=== PATIENT | female | born 1980 ===

== ENCOUNTER 2017-01-13 18:01 | Observation (INO) | payer SELFPAY ==
--- NOTE | 2017-01-13 18:54 | ED PDOC ---
HPI: General Adult Time Seen by Provider: 01/13/17 18:52 Chief Complaint (Nursing): Headache Chief Complaint (Provider): CHEST PAIN/NUMBNESS TO FACE History Per: Patient (36 Y/O FEMAL ESRD DIALYSIS MWF HERE WITH COMPLAINT OF LEFT SIDED FACIAL "WARMTH" ASSOCIATED WITH NUMBNESS GRADUAL ONSET AT 10AM. DENIES ANY UPPER OR LOWER EXTREMITY WEAKNESS. HAS MILD CHEST PRESSURE NOTED INTERMITTENTLY 20 MIN DURATION TODAY. DENIES ANY COUGH/URI/SOB.) Past Medical History Reviewed: Historical Data, Nursing Documentation, Vital Signs Vital Signs: Last Vital Signs Temp 97.8 F 01/13/17 18:12 Pulse 75 01/13/17 18:12 Resp 16 01/13/17 18:12 BP 130/78 01/13/17 18:12 Pulse Ox 98 01/13/17 19:54 - Medical History PMH: HTN, Chronic Kidney Disease - Family History Family History: States: Unknown Family Hx - Immunization History Hx Tetanus Toxoid Vaccination: No Hx Influenza Vaccination: Yes (2014) Hx Pneumococcal Vaccination: Yes (2014) - Home Medications Home Medications: Ambulatory Orders Medication Instructions Recorded Calcium Acetate 3 tab PO TID 01/08/15 Cinacalcet [Sensipar] 1 tab PO DAILY 01/08/15 Codeine Phosphate/Promethazi 5 ml PO Q6 #80 ml 05/26/15 [Promethazine with Codeine 10 mg/5 ml-6.25 mg/] Guaifenesin/Pseudoephedrne HCl 1 tab PO DAILY PRN #30 ter 05/26/15 [Mucinex D 600 mg-60 mg] Cefdinir [Omnicef] 300 mg PO BID 10 Days 08/28/15 Albuterol HFA [Ventolin HFA 90 2 puff IH Q4H #1 puff 10/25/15 mcg/actuation (8 g)] Azithromycin [Zithromax] 250 mg PO DAILY #6 tablet 10/25/15 Promethazine/Codeine 5 ml PO Q8 #60 ml 10/25/15 [Codeine/Promethazine 10 MG/5 Ml-6.25 MG/5 Ml] Naproxen [Naprosyn] 500 mg PO Q12H #20 tab 06/01/16 - Allergies Allergies/Adverse Reactions: Allergies Allergy/AdvReac Type Severity Reaction Status Date / Time vancomycin Allergy ITCHING Verified 06/01/16 10:25 Review of Systems ROS Statement: Except As Marked, All Systems Reviewed And Found Negative Cardiovascular: Positive for: Chest Pain Neurological: Positive for: Numbness (FACIAL) Physical Exam - Reviewed Nursing Documentation Reviewed: Yes Vital Signs Reviewed: Yes - Physical Exam Appears: Positive for: Well, Non-toxic, No Acute Distress Head Exam: Positive for: ATRAUMATIC, NORMAL INSPECTION, NORMOCEPHALIC Skin: Positive for: Normal Color, Warm, DRY Eye Exam: Positive for: EOMI, Normal appearance, PERRL ENT: Positive for: Normal ENT Inspection Neck: Positive for: Normal, Painless ROM Cardiovascular/Chest: Positive for: Regular Rate, Rhythm Respiratory: Positive for: CNT, Normal Breath Sounds Gastrointestinal/Abdominal: Positive for: Normal Exam, Bowel Sounds, Soft Back: Positive for: Normal Inspection Extremity: Positive for: Normal ROM, Other (SHUNT LEFT ARM) Neurologic/Psych: Positive for: Alert, Oriented - Laboratory Results Result Diagrams: 01/13/17 19:10 - ECG ECG Rhythm: Positive for: Sinus Rhythm (NSR 76BPM; NO ECTOPY NO ACUTE CHANGES ARTIFACT V5) O2 Sat by Pulse Oximetry: 98 - Progress ED Course And Treament: D/W DR. GONGORA CXR: NAD POTASSIUM HEMOLYSED. REDRAWN. Disposition - Clinical Impression Clinical Impression: Chest pain - Patient ED Disposition Is Patient to be Admitted: Transfer of Care - Disposition Disposition: Transfer of Care Disposition Time: 19:54 Condition: FAIR Patient Signed Over To: Elana Claros Handoff Comments: BLOODWORK/HEAD CT/ ADMISSION
[2017-01-13 19:29] LABS: ALB/GLOB RATIO 1.7 (1.0-2.1); ALBUMIN 4.4 g/dL (3.5-5.0); CALCIUM 9.5 mg/dL (8.4-10.2); MAGNESIUM 2.8 MG/DL (1.6-2.3)
[2017-01-13 19:40] LABS: TROPONIN I 0.015 ng/mL (0.00-0.120)
[2017-01-13 20:09] LABS: BASO # 0.1 K/uL (0.0-0.2); BASO % 0.9 % (0.0-2.0); EOS # 0.1 K/uL (0.0-0.7); EOS % 0.9 % (0.0-4.0); HEMOGLOBIN 10.9 g/dL (12.0-16.0); LYMPH # 1.5 K/uL (1.0-4.3); LYMPH % 20.2 % (20.0-40.0); MEAN CELL VOLUME 99.4 fl (81.0-99.0); MEAN CORPUSCULAR HEMOGLOBIN 32.1 pg (27.0-31.0); MEAN CORPUSCULAR HGB CONC 32.3 g/dL (33.0-37.0); MEAN PLATELET VOLUME 9.6 fl (7.2-11.7); MONO # 0.5 K/uL (0.0-0.8); MONO % 6.6 % (0.0-10.0); NEUT # 5.2 K/uL (1.8-7.0); NEUT % 71.4 % (50.0-75.0); RBC 3.4 Mil/uL (3.80-5.20); RED CELL DISTRIBUTION WIDTH 17.2 % (11.5-14.5); WHITE BLOOD COUNT 7.3 K/uL (4.8-10.8)
--- NOTE | 2017-01-13 20:13 | ED PDOC ---
- Laboratory Results Result Diagrams: 01/13/17 19:55 01/13/17 19:55 - ECG O2 Sat by Pulse Oximetry: 98 Pulse Ox Interpretation: Normal Medical Decision Making Medical Decision Making: Case was signed out to senior technical writer from [facility] Hernandes pending CT head. K was elevated and sample was hemolysed. Repeat K normal at 4.8 CT head: no acute finding, read by V rad Creatinine is 9.5, patient has ESRD, had dialysis Sunday, usually goes Sunday, Sunday, Sunday. Patient admitted to [facility]. Disposition - Clinical Impression Clinical Impression: Chest pain - POA Present On Arrival: None - Disposition Disposition: Hospitalized as Observation Patient Disposition Time: 21:36 Condition: FAIR Results - Lab Results Lab Results: 01/13/17 01/13/17 01/13/17 19:55 19:55 19:26 WBC 7.3 RBC 3.40 L Hgb 10.9 L Hct 33.8 L MCV 99.4 H MCH 32.1 H MCHC 32.3 L RDW 17.2 H Plt Count 129 L MPV 9.6 Neut % (Auto) 71.4 Lymph % (Auto) 20.2 [place] % (Auto) 6.6 Eos % (Auto) 0.9 Baso % (Auto) 0.9 Neut # 5.2 Lymph # 1.5 [place] # 0.5 Eos # 0.1 Baso # 0.1 D-Dimer, Quantitative 154 Sodium Potassium 4.8 Chloride Carbon Dioxide Anion Gap BUN Creatinine Est GFR ( Amer) Est GFR (Non-Af Amer) Random Glucose Calcium Phosphorus Magnesium Total Bilirubin AST ALT Alkaline Phosphatase Troponin I Total Protein Albumin Globulin Albumin/Globulin Ratio 01/13/17 19:10 WBC RBC Hgb Hct MCV MCH MCHC RDW Plt Count MPV Neut % (Auto) Lymph % (Auto) [place] % (Auto) Eos % (Auto) Baso % (Auto) Neut # Lymph # [place] # Eos # Baso # D-Dimer, Quantitative Sodium 137 Potassium 5.8 H Chloride 98 Carbon Dioxide 25 Anion Gap 20 BUN 49 H Creatinine 9.5 H* Est GFR ( Amer) 6 Est GFR (Non-Af Amer) 5 Random Glucose 92 Calcium 9.5 Phosphorus 6.2 H Magnesium 2.8 H Total Bilirubin 1.2 AST 47 H D ALT 22 Alkaline Phosphatase 55 Troponin I 0.0150 Total Protein 7.1 Albumin 4.4 Globulin 2.7 Albumin/Globulin Ratio 1.7
--- NOTE | 2017-01-13 21:26 | CT ---
EXAM: CT Head Without Intravenous Contrast CLINICAL HISTORY: 36 years old, female; Signs and symptoms; Weakness, facial; Patient HX: Hemodialys x around 12 yrs. HTN; Additional info: Numbness to left side of face TECHNIQUE: Axial computed tomography images of the head/brain without intravenous contrast. This CT exam was performed using one or more of the following dose reduction techniques: automated exposure control, adjustment of the mA and/or kV according to patient size, and/or use of iterative reconstruction technique. Coronal and sagittal reformatted images were created and reviewed. COMPARISON: No relevant prior studies available. FINDINGS: Brain: No intracranial hemorrhage. No mass. Dilated perivascular spaces vs chronic lacunar infarcts about basal ganglia. No definite edema. Ventricles: No hydrocephalus. Bones/joints: No acute fracture. Soft tissues: Unremarkable. Sinuses: No acute sinusitis. Mastoid air cells: No mastoid effusion. Orbits: Unremarkable as visualized. IMPRESSION: 1. No definite acute intracranial abnormality. Acute infarction may be CT occult within first 24 hours. If a focal deficit persists, consider followup CT or MRI for further evaluation. 2. Incidental/non-acute findings are described above.
--- NOTE | 2017-01-13 22:34 | CP.PCM.HP ---
<Rehan Schwartz - Last Filed: 01/13/17 22:53> History of Present Illness - History of Present Illness History of Present Illness: WANDER INT#[id number] 36 y/o female with a PMHx remarkable for ESRD (HD MWF) and HTN (not controlled with medications) presented to [facility] ED this morning with CC of left sided headache with "hot and numb" sensation and chest pain. Symptoms started this morning around 11am. Pt denies any inciting event and this is her first episode of such symptoms. Chest pain is located on the left, around the 4th intercostal space, it is 4/10, intermittent, pressure like, nonradiating. Pt denies alleviating/exacerbating factors. No change in chest pain with position change/ respiration/exertion. Denies left arm/jaw pain. Denies associated diaphoresis, nausea, vomiting. Denies palpitations/SOB/leg&calf pain. Denies Uremic symptoms , Headache started at the same time, pain resolved on its own, but the sensation of heat/numbness remained. Denies changes in vision, numbness/tingling , difficulty with speech/swallowing, any numbness/weakness in her body. Of record, pt reports she is on hemodialysis every MWF, last appointment was Sunday (01/12) and next appt is Monday 01/[address] Cates in [place]. No other complaints. ROS: remaining 10 systems reviewed, found to be negative PMD: none, reports going to [facility] on and off, last visit 07/[address] Bui Nephro: Dr. Cates, [place] PMHx: ESRD (dx 11 years ago, pt reports complication of HTN, had admission for 2 weeks and was started on HD). HTN (not controlled with medications) ALL: Vancomycin (hives) Meds: as per med rec PsurgHx: left arm fistulization in 2005, 2 c-sections POBhx: LMP: 1 week ago, regular, moderate bleeds Social: lives in [place], unemployed, denies ETOH, Tobacco, drug abuse FamilyHx: aunt had ESRD (unknown cause), denies hx of CAD, Stroke, Cancer, [place] ED COURSE: Vitals on presentation: T: 98.7, BP: 130/78, HR: 75, RR: 16, POX 98% RA LABS: CBC: 7.3>10.9/33.8<129 CMP: K+: 4.8, Cr: 9.5 D-DIMER: wnl COAGS: wnl Troponin I: wnl IMAGING: HEAD CT: no acute changes CXR: no active disease EKG: NSR, No acute ST abnormalities, no Q waves, QTc: 438 (as interpreted by me) Admitted to Telemetry for observation Present on Admission - Present on Admission Any Indicators Present on Admission: No Past Patient History - Infectious Disease Hx of Infectious Diseases: None - Tetanus Immunizations Tetanus Immunization: Unknown - Past Medical History & Family History Past Medical History?: Yes Past Family History: Reviewed and not pertinent - Past Social History Smoking Status: Never Smoked Alcohol: None Drugs: Denies Home Situation {Lives}: With Family Domestic Violence: Negative - CARDIAC Hx Hypertension: Yes - PULMONARY Hx Respiratory Disorders: No - NEUROLOGICAL Hx Neurological Disorder: No - HEENT Hx HEENT Problems: No - RENAL Hx Chronic Kidney Disease: Yes - ENDOCRINE/METABOLIC Hx Endocrine Disorders: No - HEMATOLOGICAL/ONCOLOGICAL Hx Blood Disorders: No - INTEGUMENTARY Hx Dermatological Problems: No - MUSCULOSKELETAL/RHEUMATOLOGICAL Hx Musculoskeletal Disorders: No - GASTROINTESTINAL Hx Gastrointestinal Disorders: No - GENITOURINARY/GYNECOLOGICAL Hx Genitourinary Disorders: No - PSYCHIATRIC Hx Psychophysiologic Disorder: No Hx Substance Use: No - SURGICAL HISTORY Hx Surgeries: Yes Hx Section: Yes (x2) Other/Comment: left arm shunt placement - ANESTHESIA Hx Anesthesia: Yes Hx Anesthesia Reactions: No Meds Allergies/Adverse Reactions: Allergies Allergy/AdvReac Type Severity Reaction Status Date / Time vancomycin Allergy ITCHING Verified 01/13/17 20:26 Physical Exam - Constitutional Appears: Non-toxic, No Acute Distress - Head Exam Head Exam: ATRAUMATIC, NORMOCEPHALIC - Eye Exam Eye Exam: EOMI. absent: Conjunctival injection, Scleral icterus Pupil Exam: PERRL - ENT Exam ENT Exam: Mucous Membranes Moist - Neck Exam Neck exam: Positive for: Full Rom. Negative for: Lymphadenopathy, Tenderness - Respiratory Exam Respiratory Exam: Clear to Auscultation Bilateral, NORMAL BREATHING PATTERN. absent: Rales, Rhonchi, Wheezes, Respiratory Distress - Cardiovascular Exam Cardiovascular Exam: REGULAR RHYTHM, RRR, +S1, +S2, Systolic Murmur. absent: Gallop, JVD, Rubs - Expanded Cardiovascular Exam Expanded Location: Lt Upper Sternal Border Intensity: 2/6 - GI/Abdominal Exam GI & Abdominal Exam: Normal Bowel Sounds. absent: Distended, Firm, Guarding, Pulsatile Mass, Rigid, Soft, Tenderness - Expanded Upper Extremities Exam Left General: absent: normal inspection (functioning fistula located on left upper extremity just above elbow.) - Back Exam Back exam: NORMAL INSPECTION. absent: CVA tenderness (L), CVA tenderness (R) - Neurological Exam Neurological exam: Alert, CN II-XII Intact, Normal Gait, Oriented x3, Reflexes Normal - Psychiatric Exam Psychiatric exam: Normal Affect, Normal Mood - Skin Skin Exam: Dry, Intact, Normal Color, Warm Results - Vital Signs Recent Vital Signs: Last Vital Signs Temp 98.5 F 01/13/17 22:10 Pulse 73 01/13/17 22:10 Resp 18 01/13/17 22:10 BP 127/78 01/13/17 22:10 Pulse Ox 100 01/13/17 22:10 - Labs Result Diagrams: 01/13/17 19:55 01/13/17 19:55 Assessment & Plan (1) Chest pain, rule out acute myocardial infarction Assessment and Plan: EKG unremarkable F/U EKG in AM Troponin I first value wnl, will trend Q8H CMP in am Cardiology consult appreciated Status: Acute Priority: High (2) ESRD (end stage renal disease) on dialysis Assessment and Plan: being followed by Dr. Cates HD: MWF will monitor for signs of uremia/fluid overload Status: Chronic Priority: Low (3) Anemia in ESRD (end-stage renal disease) Assessment and Plan: asymptomatic f/u CBC in AM Status: Chronic Priority: Low (4) Hypertension Assessment and Plan: controlled w/o medications will monitor vitals Status: Chronic Priority: Low <Matilda Marie - Last Filed: 01/14/17 09:03> Results - Vital Signs Recent Vital Signs: Last Vital Signs Temp 98.2 F 01/14/17 08:07 Pulse 69 01/14/17 08:07 Resp 20 01/14/17 08:07 BP 119/82 01/14/17 08:07 Pulse Ox 100 01/14/17 08:07 - Labs Result Diagrams: 01/14/17 06:00 01/13/17 19:55 Labs: Laboratory Results - last 24 hr 01/13/17 01/14/17 01/14/17 22:41 02:50 06:00 WBC 5.8 RBC 3.10 L Hgb 10.3 L Hct 30.5 L MCV 98.2 MCH 33.3 H MCHC 33.9 RDW 16.4 H Plt Count 121 L Troponin I < 0.0120 Triglycerides 183 H Cholesterol 187 LDL Cholesterol Direct 89 HDL Cholesterol 41 Assessment & Plan - Assessment and Plan (Free Text) Assessment: ATTENDING NOTE CHART REVIEWED. CASE DISCUSSED WITH RESIDENT. AGREE WITH PLAN.
[2017-01-13 23:01] LABS: HDL CHOLESTEROL 41 MG/DL (30-70); LDL CHOLESTEROL 89 mg/dL (0-129)
[2017-01-14 08:07] VITALS: RESP 20
--- NOTE | 2017-01-14 08:29 | RAD ---
HISTORY: CHEST PAIN COMPARISON: No prior. FINDINGS: LUNGS: No active pulmonary disease. PLEURA: No significant pleural effusion identified, no pneumothorax apparent. CARDIOVASCULAR: Normal. OSSEOUS STRUCTURES: No significant abnormalities. VISUALIZED UPPER ABDOMEN: Normal. OTHER FINDINGS: None. IMPRESSION: No active disease.
[2017-01-14 08:41] LABS: HEMOGLOBIN 10.3 g/dL (12.0-16.0); MEAN CELL VOLUME 98.2 fl (81.0-99.0); MEAN CORPUSCULAR HEMOGLOBIN 33.3 pg (27.0-31.0); MEAN CORPUSCULAR HGB CONC 33.9 g/dL (33.0-37.0); RBC 3.1 Mil/uL (3.80-5.20); RED CELL DISTRIBUTION WIDTH 16.4 % (11.5-14.5); WHITE BLOOD COUNT 5.8 K/uL (4.8-10.8)
[2017-01-14 09:02] LABS: ALB/GLOB RATIO 1.5 (1.0-2.1); ALT/SGPT 41 U/L (9-52); AST/SGOT 30 U/L (14-36); BLOOD UREA NITROGEN 59 mg/dl (7-17); CALCIUM 9.7 mg/dL (8.4-10.2); GFR AFRICAN-AMERICAN 5; GFR NON-AFRICAN AMERICAN 4
--- NOTE | 2017-01-14 11:01 | CP.PCM.CON ---
History of Present Illness - History of Present Illness History of Present Illness: 36 y/o female with a PMHx remarkable for ESRD and HTN admitted with chest pain presented to [facility] ED with CC of left sided headache with "hot and numb" sensation and dull aching chest pain that lasted minutes. Pt denies any inciting event and this is her first episode of such symptoms. Pt is asymptomatic this morning EKG: normal Troponin: neg x 3 Past Patient History - Infectious Disease Hx of Infectious Diseases: None - Tetanus Immunizations Tetanus Immunization: Unknown - Past Medical History & Family History Past Medical History?: Yes Past Family History: Reviewed and not pertinent - Past Social History Smoking Status: Never Smoked Alcohol: None Drugs: Denies Home Situation {Lives}: With Family Domestic Violence: Negative - CARDIAC Hx Hypertension: Yes - PULMONARY Hx Respiratory Disorders: No - NEUROLOGICAL Hx Neurological Disorder: No - HEENT Hx HEENT Problems: No - RENAL Hx Chronic Kidney Disease: Yes - ENDOCRINE/METABOLIC Hx Endocrine Disorders: No - HEMATOLOGICAL/ONCOLOGICAL Hx Blood Disorders: No - INTEGUMENTARY Hx Dermatological Problems: No - MUSCULOSKELETAL/RHEUMATOLOGICAL Hx Musculoskeletal Disorders: No - GASTROINTESTINAL Hx Gastrointestinal Disorders: No - GENITOURINARY/GYNECOLOGICAL Hx Genitourinary Disorders: No - PSYCHIATRIC Hx Psychophysiologic Disorder: No Hx Substance Use: No - SURGICAL HISTORY Hx Surgeries: Yes Hx Section: Yes (x2) Other/Comment: left arm shunt placement - ANESTHESIA Hx Anesthesia: Yes Hx Anesthesia Reactions: No Meds Allergies/Adverse Reactions: Allergies Allergy/AdvReac Type Severity Reaction Status Date / Time vancomycin Allergy ITCHING Verified 01/13/17 20:26 - Medications Medications: Current Medications Acetaminophen (Tylenol 325mg Tab) 650 mg PO Q6 PRN PRN Reason: Pain, Mild (1-3) Ondansetron HCl (Zofran Inj) 4 mg IVP Q6 PRN PRN Reason: Nausea/Vomiting Physical Exam - Head Exam Head Exam: NORMAL INSPECTION - Eye Exam Eye Exam: Normal appearance Pupil Exam: NORMAL ACCOMODATION - ENT Exam ENT Exam: Normal Exam - Neck Exam Neck exam: Positive for: Normal Inspection - Respiratory Exam Respiratory Exam: NORMAL BREATHING PATTERN - Cardiovascular Exam Cardiovascular Exam: REGULAR RHYTHM Results - Vital Signs Recent Vital Signs: Last Vital Signs Temp 98.2 F 01/14/17 08:07 Pulse 69 01/14/17 08:07 Resp 20 01/14/17 08:07 BP 119/82 07/23/17 08:07 Pulse Ox 100 01/14/17 08:07 - Labs Result Diagrams: 01/14/17 06:00 01/14/17 06:00 Labs: Laboratory Results - last 24 hr 01/13/17 01/14/17 01/14/17 22:41 02:50 06:00 WBC RBC Hgb Hct MCV MCH MCHC RDW Plt Count Sodium 139 Potassium 5.1 H Chloride 98 Carbon Dioxide 27 Anion Gap 19 BUN 59 H Creatinine 10.9 H* Est GFR ( Amer) 5 Est GFR (Non-Af Amer) 4 Random Glucose 77 Calcium 9.7 Total Bilirubin 0.6 AST 30 ALT 41 Alkaline Phosphatase 53 Troponin I < 0.0120 < 0.0120 Total Protein 6.6 Albumin 4.0 Globulin 2.6 Albumin/Globulin Ratio 1.5 Triglycerides 183 H Cholesterol 187 LDL Cholesterol Direct 89 HDL Cholesterol 41 01/14/17 06:00 WBC 5.8 RBC 3.10 L Hgb 10.3 L Hct 30.5 L MCV 98.2 MCH 33.3 H MCHC 33.9 RDW 16.4 H Plt Count 121 L Sodium Potassium Chloride Carbon Dioxide Anion Gap BUN Creatinine Est GFR ( Amer) Est GFR (Non-Af Amer) Random Glucose Calcium Total Bilirubin AST ALT Alkaline Phosphatase Troponin I Total Protein Albumin Globulin Albumin/Globulin Ratio Triglycerides Cholesterol LDL Cholesterol Direct HDL Cholesterol Assessment & Plan (1) Chest pain Assessment and Plan: non cardiac chest pain Status: Acute
--- NOTE | 2017-01-14 11:29 | CARD ---
APPROVED REPORT EKG Measurement Heart [id number] <Conclusion> Normal sinus rhythm Normal ECG
--- NOTE | 2017-01-14 11:48 | CP.PCM.DIS ---
<Margaret Perales - Last Filed: 01/14/17 12:30> Provider - Provider Date of Admission: 01/13/17 21:36 Attending physician: Matilda Marie MD Primary care physician: [facility] Time Spent in preparation of Discharge (in minutes): 30 Diagnosis - Discharge Diagnosis (1) Chest pain, rule out acute myocardial infarction Status: Acute Priority: Low Comment: ACS ruled out (2) ESRD (end stage renal disease) on dialysis Status: Chronic Priority: Low Hospital Course - Lab Results Lab Results: Most Recent Lab Values WBC 5.8 K/uL (4.8-10.8) 01/14/17 06:00 RBC 3.10 Mil/uL (3.80-5.20) L 01/14/17 06:00 Hgb 10.3 g/dL (12.0-16.0) L 01/14/17 06:00 Hct 30.5 % (34.0-47.0) L 01/14/17 06:00 MCV 98.2 fl (81.0-99.0) 01/14/17 06:00 MCH 33.3 pg (27.0-31.0) H 01/14/17 06:00 MCHC 33.9 g/dL (33.0-37.0) 01/14/17 06:00 RDW 16.4 % (11.5-14.5) H 01/14/17 06:00 Plt Count 121 K/uL (130-400) L 01/14/17 06:00 MPV 9.6 fl (7.2-11.7) 01/13/17 19:55 Neut % (Auto) 71.4 % (50.0-75.0) 01/13/17 19:55 Lymph % (Auto) 20.2 % (20.0-40.0) 01/13/17 19:55 Cataño % (Auto) 6.6 % (0.0-10.0) 01/13/17 19:55 Eos % (Auto) 0.9 % (0.0-4.0) 01/13/17 19:55 Baso % (Auto) 0.9 % (0.0-2.0) 01/13/17 19:55 Neut # 5.2 K/uL (1.8-7.0) 01/13/17 19:55 Lymph # 1.5 K/uL (1.0-4.3) 01/13/17 19:55 Cataño # 0.5 K/uL (0.0-0.8) 01/13/17 19:55 Eos # 0.1 K/uL (0.0-0.7) 01/13/17 19:55 Baso # 0.1 K/uL (0.0-0.2) 01/13/17 19:55 D-Dimer, Quantitative 154 ng/mlDDU (0-230) 01/13/17 19:26 Sodium 139 mmol/l (132-148) 01/14/17 06:00 Potassium 5.1 MMOL/L (3.6-5.0) H 01/14/17 06:00 Chloride 98 mmol/L (98-107) 01/14/17 06:00 Carbon Dioxide 27 mmol/L (22-30) 01/14/17 06:00 Anion Gap 19 (10-20) 01/14/17 06:00 BUN 59 mg/dl (7-17) H 01/14/17 06:00 Creatinine 10.9 mg/dL (0.7-1.2) H* 01/14/17 06:00 Est GFR ( Amer) 5 01/14/17 06:00 Est GFR (Non-Af Amer) 4 01/14/17 06:00 Random Glucose 77 mg/dL (65-105) 01/14/17 06:00 Calcium 9.7 mg/dL (8.4-10.2) 01/14/17 06:00 Phosphorus 6.2 mg/dl (2.5-4.5) H 01/13/17 19:10 Magnesium 2.8 MG/DL (1.6-2.3) H 01/13/17 19:10 Total Bilirubin 0.6 mg/dl (0.2-1.3) 01/14/17 06:00 AST 30 U/L (14-36) 01/14/17 06:00 ALT 41 U/L (9-52) 01/14/17 06:00 Alkaline Phosphatase 53 U/L (38-126) 01/14/17 06:00 Troponin I < 0.0120 ng/mL (0.00-0.120) 01/14/17 06:00 Total Protein 6.6 G/DL (6.3-8.2) 01/14/17 06:00 Albumin 4.0 g/dL (3.5-5.0) 01/14/17 06:00 Globulin 2.6 gm/dL (2.2-3.9) 01/14/17 06:00 Albumin/Globulin Ratio 1.5 (1.0-2.1) 01/14/17 06:00 Triglycerides 183 mg/DL (0-149) H 01/13/17 22:41 Cholesterol 187 mg/dL (0-199) 01/13/17 22:41 LDL Cholesterol Direct 89 mg/dL (0-129) 01/13/17 22:41 HDL Cholesterol 41 MG/DL (30-70) 01/13/17 22:41 - Hospital Course Hospital Course: 36 yr old F admitted for chest pain, ACS was ruled out. EKG showed NSR, troponins were negative x 3, patients symptoms resolved. She was discharged stable with intstructions to go for hemodialysis as scheduled on 01/15/17, follow up with PMD at [facility] within 1 week, follow up with Dr. Samuel-cardiology, follow up with your mortuary operations manager Dr. Cates within 1-2 weeks, follow up with Jack Warren at [facility], take your home meds as prescribed, ER precautions were reviewed. - Date & Time of H&P Date of H&P: 01/13/17 Time of H&P: 22:32 Discharge Exam - Head Exam Head Exam: ATRAUMATIC, NORMOCEPHALIC - Eye Exam Eye Exam: EOMI, PERRL - ENT Exam ENT Exam: Mucous Membranes Moist - Neck Exam Neck exam: Full Rom - Respiratory Exam Respiratory Exam: Clear to PA & Lateral, NORMAL BREATHING PATTERN - Cardiovascular Exam Cardiovascular Exam: REGULAR RHYTHM, +S1, +S2. absent: Gallop - GI/Abdominal Exam GI & Abdominal Exam: Normal Bowel Sounds, Soft (obese) - Extremities Exam Extremities exam: full ROM (no calf tenderness, no pedal edema) - Back Exam Back exam: absent: CVA tenderness (L), CVA tenderness (R) - Neurological Exam Neurological exam: Alert, CN II-XII Intact - Psychiatric Exam Psychiatric exam: Depressed (no suicidal ideations, no homicidal ideations), Normal Mood - Skin Skin Exam: Dry, Intact Discharge Plan - Follow Up Plan Condition: FAIR Disposition: HOME/ ROUTINE Patient education suggested?: Yes Instructions: Chest Pain (DC), Dialysis Diet (DC), End Stage Kidney Disease (DC ) Additional Instructions: -Follow up with PMD at [facility] within 1 week, call [phone] for appt -Follow up with Dr. Samuel-cardiology -Follow up with your mortuary operations manager Dr. Cates within 1-2 weeks -Follow up with Jack Warren at [facility]. -Take your home meds as prescribed. Referrals: Jacky Samuel MD [Staff Provider] - Margaret Perales MD [Resident] - Melissa Cates MD [Staff Provider] - Jack Warren APN [Staff Provider] - <Matilda Marie - Last Filed: 01/15/17 10:26> Provider - Provider Date of Admission: 01/13/17 21:36 Attending physician: Matilda Marie MD Hospital Course - Lab Results Lab Results: Most Recent Lab Values WBC 5.8 K/uL (4.8-10.8) 01/14/17 06:00 RBC 3.10 Mil/uL (3.80-5.20) L 01/14/17 06:00 Hgb 10.3 g/dL (12.0-16.0) L 01/14/17 06:00 Hct 30.5 % (34.0-47.0) L 01/14/17 06:00 MCV 98.2 fl (81.0-99.0) 01/14/17 06:00 MCH 33.3 pg (27.0-31.0) H 01/14/17 06:00 MCHC 33.9 g/dL (33.0-37.0) 01/14/17 06:00 RDW 16.4 % (11.5-14.5) H 01/14/17 06:00 Plt Count 121 K/uL (130-400) L 01/14/17 06:00 MPV 9.6 fl (7.2-11.7) 01/13/17 19:55 Neut % (Auto) 71.4 % (50.0-75.0) 01/13/17 19:55 Lymph % (Auto) 20.2 % (20.0-40.0) 01/13/17 19:55 Cataño % (Auto) 6.6 % (0.0-10.0) 01/13/17 19:55 Eos % (Auto) 0.9 % (0.0-4.0) 01/13/17 19:55 Baso % (Auto) 0.9 % (0.0-2.0) 01/13/17 19:55 Neut # 5.2 K/uL (1.8-7.0) 01/13/17 19:55 Lymph # 1.5 K/uL (1.0-4.3) 01/13/17 19:55 Cataño # 0.5 K/uL (0.0-0.8) 01/13/17 19:55 Eos # 0.1 K/uL (0.0-0.7) 01/13/17 19:55 Baso # 0.1 K/uL (0.0-0.2) 01/13/17 19:55 D-Dimer, Quantitative 154 ng/mlDDU (0-230) 01/13/17 19:26 Sodium 139 mmol/l (132-148) 01/14/17 06:00 Potassium 5.1 MMOL/L (3.6-5.0) H 01/14/17 06:00 Chloride 98 mmol/L (98-107) 01/14/17 06:00 Carbon Dioxide 27 mmol/L (22-30) 01/14/17 06:00 Anion Gap 19 (10-20) 01/14/17 06:00 BUN 59 mg/dl (7-17) H 01/14/17 06:00 Creatinine 10.9 mg/dL (0.7-1.2) H* 01/14/17 06:00 Est GFR ( Amer) 5 01/14/17 06:00 Est GFR (Non-Af Amer) 4 01/14/17 06:00 Random Glucose 77 mg/dL (65-105) 01/14/17 06:00 Calcium 9.7 mg/dL (8.4-10.2) 01/14/17 06:00 Phosphorus 6.2 mg/dl (2.5-4.5) H 01/13/17 19:10 Magnesium 2.8 MG/DL (1.6-2.3) H 01/13/17 19:10 Total Bilirubin 0.6 mg/dl (0.2-1.3) 01/14/17 06:00 AST 30 U/L (14-36) 01/14/17 06:00 ALT 41 U/L (9-52) 01/14/17 06:00 Alkaline Phosphatase 53 U/L (38-126) 01/14/17 06:00 Troponin I < 0.0120 ng/mL (0.00-0.120) 01/14/17 11:30 Total Protein 6.6 G/DL (6.3-8.2) 01/14/17 06:00 Albumin 4.0 g/dL (3.5-5.0) 01/14/17 06:00 Globulin 2.6 gm/dL (2.2-3.9) 01/14/17 06:00 Albumin/Globulin Ratio 1.5 (1.0-2.1) 01/14/17 06:00 Triglycerides 183 mg/DL (0-149) H 01/13/17 22:41 Cholesterol 187 mg/dL (0-199) 01/13/17 22:41 LDL Cholesterol Direct 89 mg/dL (0-129) 01/13/17 22:41 HDL Cholesterol 41 MG/DL (30-70) 01/13/17 22:41 Discharge Exam - Additional Findings Additional findings: ATTENDING NOTE - ADDENDUM Patient seen and examined. Case discussed with resident. Agree with findings and plan.
[2017-01-14 12:19] VITALS: BP 115/79; PULSE 63; TEMP 98.3; O2SAT 99
== END 2017-01-14 12:23 | disposition home or self-care (01) ==
LOC: H.ER 18:01 → H.ERHOLD 21:36 → H.TEL 22:46
PROVIDERS: ADMIT Emergency Medicine; ATTEND Emergency Medicine
DX: R07.89 Other chest pain (principal); D63.1 Anemia in chronic kidney disease; I12.0 Hypertensive chronic kidney disease with stage 5 chronic kidney disease or end stage renal disease; N18.6 End stage renal disease; Z99.2 Dependence on renal dialysis; R51 Headache

== ENCOUNTER 2017-06-20 06:23 | Emergency (ER) | payer OTHER, SELFPAY ==
[2017-06-20 06:23] VITALS: BMI 33.5
[2017-06-20 06:39] VITALS: RESP 16; TEMP 98.6; O2SAT 98
[2017-06-20] MEDS ORDERED: Sodium Chloride 0.9% 500 ML IV STA (07:25)
--- NOTE | 2017-06-20 07:29 | ED PDOC ---
HPI: Abdomen Time Seen by Provider: 06/20/17 07:08 Chief Complaint (Nursing): Abdominal Pain Chief Complaint (Provider): Epigastric pain History Per: Patient History/Exam Limitations: no limitations Onset/Duration Of Symptoms: Hrs (x9-10) Current Symptoms Are (Timing): Still Present Additional Complaint(s): Karen Milner is a 36 year old female with a past medical history of hypertension and currently on dialysis with last dialysis tx occurring on Sunday and due for next dialysis tx today at 9 AM presenting to the ED for an evaluation of epigastric pain associated with nausea, non-bloody vomiting, and non-bloody diarrhea occurring since 10 PM last night. The patient states the pain occurs intermittently and also reports associated generalized weakness and dizziness. She has had similar symptoms prior to this, which resolved on its own. The patient denies taking any medication for the pain, any changes in eating or drinking, fever, chills, chest pain, leg pain, shortness of breath, numbness, tingling, dysuria, or headache. PMD: None provided Past Medical History Reviewed: Historical Data, Nursing Documentation, Vital Signs Vital Signs: Last Vital Signs Temp 98.6 F 06/20/17 06:36 Pulse 92 H 06/20/17 06:36 Resp 16 06/20/17 06:36 BP 120/84 06/20/17 06:36 Pulse Ox 98 06/20/17 07:35 - Medical History PMH: HTN, End Stage Renal Disease (on dialysis), Chronic Kidney Disease - Surgical History Surgical History: (x2) - Family History Family History: States: No Known Family Hx - Social History Current smoker - smoking cessation education provided: No Ex-Smoker (has not smoked in the last 12 months): No Alcohol: None Drugs: Denies - Immunization History Hx Tetanus Toxoid Vaccination: No Hx Influenza Vaccination: Yes (2014) Hx Pneumococcal Vaccination: Yes (2014) - Home Medications Home Medications: Ambulatory Orders Medication Instructions Recorded Sevelamer Carbonate [Renvela] 800 mg PO DAILY 01/13/17 Nitrofurantoin Macrocrystals 100 mg PO BID #14 cap 04/29/17 [Macrobid] - Allergies Allergies/Adverse Reactions: Allergies Allergy/AdvReac Type Severity Reaction Status Date / Time vancomycin Allergy ITCHING Verified 01/13/17 20:26 Review of Systems ROS Statement: Except As Marked, All Systems Reviewed And Found Negative Constitutional: Negative for: Fever, Chills Cardiovascular: Negative for: Chest Pain Respiratory: Negative for: Shortness of Breath Gastrointestinal: Positive for: Nausea, Vomiting, Abdominal Pain (epigastric pain), Diarrhea. Negative for: Hematochezia, Hematemesis Genitourinary Female: Negative for: Dysuria Musculoskeletal: Negative for: Leg Pain Neurological: Positive for: Weakness (generalized), Dizziness. Negative for: Numbness, Headache, Other (no tingling) Physical Exam - Reviewed Nursing Documentation Reviewed: Yes Vital Signs Reviewed: Yes - Physical Exam Appears: Positive for: Non-toxic, No Acute Distress Head Exam: Positive for: ATRAUMATIC, NORMOCEPHALIC Skin: Positive for: Normal Color, Warm, Dry Eye Exam: Positive for: Normal appearance, EOMI Neck: Positive for: Normal, Painless ROM, Supple Cardiovascular/Chest: Positive for: Regular Rate, Rhythm, Chest Non Tender. Negative for: Edema, Murmur Respiratory: Positive for: Normal Breath Sounds. Negative for: Respiratory Distress Gastrointestinal/Abdominal: Positive for: Soft, Tenderness (to epigastric area; no lower abdominal tenderness). Negative for: Mass, Distended, Guarding, Rebound Back: Positive for: Normal Inspection. Negative for: L CVA Tenderness, R CVA Tenderness, Vertebral Tenderness Extremity: Positive for: Normal ROM. Negative for: Pedal Edema, Deformity Neurologic/Psych: Positive for: Alert, Oriented (x3). Negative for: Motor/ Sensory Deficits - Laboratory Results Result Diagrams: 06/20/17 08:25 06/20/17 08:25 Interpretation Of Abn Labs: 5.6 k - ECG ECG: Positive for: Interpreted By Me, Viewed By Me ECG Rhythm: Positive for: Normal QRS, Normal ST Segment, Sinus Rhythm O2 Sat by Pulse Oximetry: 98 (RA) Pulse Ox Interpretation: Normal - Progress ED Course And Treament: 921: Stable. Tolerated PO. AAOx3. No pain. Has dialysis today. She will go to the dialysis and they will take her today. Medical Decision Making Medical Decision Making: Time: 07:08 Impression: Epigastric tenderness associated with nausea, vomiting, and diarrhea Plan: * ED EKG * CMP * Lipase * Troponin I * CBC (with differential) * Bentyl 10 mg PO * NS 0.9% 500 ml IV 100 mls/hr * Zofran 4 mg IV * Reevaluation Scribe Attestation: Documented by Theodora Frey, acting as a scribe for Pa Tello MD. Provider Scribe Attestation: All medical record entries made by the Scribe were at my direction and personally dictated by me. I have reviewed the chart and agree that the record accurately reflects my personal performance of the history, physical exam, medical decision making, and the department course for this patient. I have also personally directed, reviewed, and agree with the discharge instructions and disposition. Disposition - Clinical Impression Clinical Impression: Hyperkalemia, Abdominal pain, Vomiting, Diarrhea - Patient ED Disposition Is Patient to be Admitted: No Counseled Patient/Family Regarding: Studies Performed, Diagnosis, Need For Followup - Disposition Referrals: [facility] [Outside] - 06/21/17 Disposition: Routine/Home Disposition Time: 09:44 Condition: STABLE Additional Instructions: Return if not better in 3 days. Go straight to dialysis today. Instructions: Hyperkalemia (ED), Acute Nausea and Vomiting (ED), Acute Diarrhea (ED), Acute Abdominal Pain (ED)
[2017-06-20 08:28] LABS: BASO % 0.3 % (0.0-2.0); EOS # 0.1 K/uL (0.0-0.7); LYMPH # 0.3 K/uL (1.0-4.3); LYMPH % 4.5 % (20.0-40.0); MEAN CORPUSCULAR HEMOGLOBIN 30.9 pg (27.0-31.0); MEAN CORPUSCULAR HGB CONC 32.2 g/dL (33.0-37.0); MEAN PLATELET VOLUME 9.3 fl (7.2-11.7); MONO # 0.2 K/uL (0.0-0.8); MONO % 2.9 % (0.0-10.0); NEUT # 5.9 K/uL (1.8-7.0); NEUT % 91.3 % (50.0-75.0); PLATELET COUNT 121 K/uL (130-400); RED CELL DISTRIBUTION WIDTH 16.8 % (11.5-14.5); WHITE BLOOD COUNT 6.5 K/uL (4.8-10.8)
[2017-06-20 09:07] LABS: TROPONIN I 0.013 ng/mL (0.00-0.120)
[2017-06-20 09:12] LABS: ALB/GLOB RATIO 1.5 (1.0-2.1); BILIRUBIN,TOTAL 0.5 mg/dl (0.2-1.3); CALCIUM 9.5 mg/dL (8.4-10.2); POTASSIUM 5.6 MMOL/L (3.6-5.0); TOTAL PROTEIN 7.2 G/DL (6.3-8.2)
[2017-06-20] MEDS ORDERED: Sod Polystyrene Sulf 15 gm/60 ml Susp PO STA (09:19)
[2017-06-20] MEDS ORDERED: Insulin Regular 100 units/ml IV STA (09:19)
[2017-06-20] MEDS ORDERED: Dextrose 50% SYRINGE Inj (50 ml) IVP ONE (09:20)
[2017-06-20] MEDS ORDERED: Sod Polystyrene Sulf 15 gm/60 ml Susp ONE (09:41)
[2017-06-20] MEDS ORDERED: Dextrose 50% SYRINGE Inj (50 ml) ONE (09:42)
[2017-06-20] MEDS ORDERED: Insulin Regular 100 units/ml ONE (09:44)
[2017-06-20 10:14] VITALS: BP 146/77; PULSE 91
[2017-06-20 11:17] LABS: NEUTROPHIL 90 % (42-75); TOTAL CELLS COUNTED 100
--- NOTE | 2017-06-21 09:28 | CARD ---
APPROVED REPORT EKG Measurement Heart [id number] <Conclusion> Normal sinus rhythm Normal ECG
== END 2017-06-20 10:05 | disposition home or self-care (01) ==
LOC: H.ER 06:23
DX: E87.5 Hyperkalemia (principal); R10.9 Unspecified abdominal pain; Z99.2 Dependence on renal dialysis; I12.0 Hypertensive chronic kidney disease with stage 5 chronic kidney disease or end stage renal disease; Z87.891 Personal history of nicotine dependence
CPT/HCPCS: 80053; 81025; 83690; 84484; 85025; 93005; 96361; 96374; 96375; 99283; J2405; J7040

== ENCOUNTER 2017-12-28 17:12 | Observation (INO) | payer OTHER ==
[2017-12-28 17:13] VITALS: BMI 33.5
[2017-12-28] MEDS ORDERED: Sodium Chloride 0.9% 1,000 ML IV STA (19:58)
--- NOTE | 2017-12-28 20:50 | ED PDOC ---
HPI: Back Time Seen by Provider: 12/28/17 19:30 Chief Complaint (Nursing): Back Pain Chief Complaint (Provider): Back Pain History Per: Patient History/Exam Limitations: no limitations Onset/Duration Of Symptoms: Days (x2) Current Symptoms Are (Timing): Still Present Additional Complaint(s): 37 year old female with medical history of renal disease, presents to the emergency department with a complaint of pain to her right flank, lower right abdomen and right leg ongoing since yesterday. She denies any fever, chills, vomiting, diarrhea, vaginal bleed, dysuria or hematuria. Patient reports taking Tylenol and Motrin with no relief. Nephorologist: Dr. Cates Past Medical History Reviewed: Historical Data, Nursing Documentation, Vital Signs Vital Signs: Last Vital Signs Temp 98.6 F 12/28/17 17:57 Pulse 79 12/28/17 17:57 Resp 16 12/28/17 17:57 BP 111/73 12/28/17 17:57 Pulse Ox 97 12/28/17 17:57 - Medical History PMH: HTN, End Stage Renal Disease (on dialysis), Chronic Kidney Disease - Surgical History Surgical History: (x2) - Family History Family History: States: Unknown Family Hx - Immunization History Hx Tetanus Toxoid Vaccination: No Hx Influenza Vaccination: Yes (2014) Hx Pneumococcal Vaccination: Yes (2014) - Home Medications Home Medications: Ambulatory Orders Medication Instructions Recorded Sevelamer Carbonate [Renvela] 800 mg PO TID 01/13/17 Cinacalcet [Sensipar] 30 mg PO DAILY 12/29/17 - Allergies Allergies/Adverse Reactions: Allergies Allergy/AdvReac Type Severity Reaction Status Date / Time vancomycin Allergy ITCHING Verified 12/28/17 17:55 Review of Systems ROS Statement: Except As Marked, All Systems Reviewed And Found Negative Constitutional: Negative for: Fever, Chills Gastrointestinal: Positive for: Abdominal Pain (lower right). Negative for: Vomiting, Diarrhea Genitourinary Female: Negative for: Dysuria, Hematuria, Vaginal Bleeding Musculoskeletal: Positive for: Back Pain (right flank), Leg Pain (right) Physical Exam - Reviewed Nursing Documentation Reviewed: Yes Vital Signs Reviewed: Yes - Physical Exam Appears: Positive for: Non-toxic, No Acute Distress Head Exam: Positive for: ATRAUMATIC, NORMAL INSPECTION, NORMOCEPHALIC Skin: Positive for: Normal Color Eye Exam: Positive for: Normal appearance ENT: Positive for: Normal ENT Inspection Neck: Positive for: Normal Cardiovascular/Chest: Positive for: Regular Rate, Rhythm Respiratory: Positive for: Normal Breath Sounds. Negative for: Respiratory Distress Gastrointestinal/Abdominal: Positive for: Soft, Tenderness (RLQ; right flank) Back: Positive for: Normal Inspection. Negative for: L CVA Tenderness, R CVA Tenderness, Other ((-) straight-leg raise) Extremity: Positive for: Normal ROM (upper/lower/hip). Negative for: Pedal Edema (bilateral) Neurologic/Psych: Positive for: Alert, Oriented. Negative for: Motor/Sensory Deficits - Laboratory Results Result Diagrams: 12/29/17 06:40 12/29/17 06:40 - ECG O2 Sat by Pulse Oximetry: 97 (RA) Pulse Ox Interpretation: Normal Medical Decision Making Medical Decision Making: Initial Impression: Right flank pain; RLQ pain Differential Diagnosis: Renal colic; nephritis; Acute appendicitis; UTI; lumbar radiculopathy Initial Plan: * CT ABD/pelvis with IV contrast * BMP * Urine dipstick * CBC * NS 1,000ml IV per 1,000mls/hr * Toradol 30mg IVP * UA Time: 2115 --Urine: negative for . Scribe Attestation: Documented by Yuko Gibson, acting as a scribe for Elvis Wang MD. Provider Scribe Attestation: All medical record entries made by the Scribe were at my direction and personally dictated by me. I have reviewed the chart and agree that the record accurately reflects my personal performance of the history, physical exam, medical decision making, and the department course for this patient. I have also personally directed, reviewed, and agree with the discharge instructions and disposition. Time: 2256 CT ABD/PELVIS RESULTS FINDINGS: Lower thorax: Minimal atelectasis or parenchymal scarring in the imaged lungs. ABDOMEN: Liver: No acute findings. Gallbladder and bile ducts: The gallbladder is moderately distended, similar to the prior study. No radiopaque gallstones or pericholecystic inflammatory changes. No biliary ductal dilation. Pancreas: No acute findings. Spleen: Redemonstrated splenomegaly, measuring 16 cm in craniocaudal dimension. Adrenals: No acute findings. Kidneys and ureters: Redemonstrated marked bilateral renal atrophy. No urinary tract dilation or radiopaque urinary tract calculi. Redemonstrated small, bilateral renal cysts. Stomach and bowel: Moderate amount of gas and stool present throughout the colon. No colonic wall thickening or pericolonic fat stranding. No evident acute abnormality of the stomach or small bowel. Appendix: The appendix is borderline dilated, measuring up to 7 mm in diameter, but is stable in caliber compared to the prior study and otherwise normal in appearance with no adjacent inflammatory changes. PELVIS: Bladder: The bladder is only minimally distended. No evident acute abnormality. Reproductive: No evident abnormality of the gynecologic structures. ABDOMEN and PELVIS: Intraperitoneal space: No free intraperitoneal fluid or air. Bones/joints: No evident acute fracture or suspicious osseous lesion. Soft tissues: No acute findings. Vasculature: No acute findings. The abdominal aorta is normal in caliber. Lymph nodes: No enlarged abdominal or pelvic lymph nodes by CT criteria. IMPRESSION: 1. The appendix is borderline dilated but is stable in caliber compared to the prior study and otherwise normal in appearance with no adjacent inflammatory changes. This likely represents the patient's baseline but early acute appendicitis cannot be entirely excluded. 2. Moderate amount of gas and stool present throughout the colon. 3. The gallbladder is moderately distended but there are no radiopaque gallstones or pericholecystic inflammatory changes to suggest acute cholecystitis. 4. Redemonstrated splenomegaly. 5. Additional redemonstrated and non-acute findings as described above. Thank you for allowing us to participate in the care of your patient. Dictated and Authenticated by: Irasema Zimmerman MD 12/28/2017 10:57 PM Eastern Time ([place] & [place]) 1230 Discussed the case with operating room surgical technician for Dr Orozco. Recommend observation for serial abdominal exams. Scribe Attestation: Documented by Eliza Rowley acting as a scribe for Dr. Elvis Wang MD. Provider Scribe Attestation: All medical record entries made by the Scribe were at my direction and personally dictated by me. I have reviewed the chart and agree that the record accurately reflects my personal performance of the history, physical exam, medical decision making, and the department course for this patient. I have also personally directed, reviewed, and agree with the discharge instructions and disposition. Disposition - Clinical Impression Clinical Impression: Abdominal pain - Patient ED Disposition Is Patient to be Admitted: Yes Discussed With : Kamran Pena Counseled Patient/Family Regarding: Studies Performed, Diagnosis - Disposition Disposition Time: 01:00 Condition: FAIR - Pt Status Changed To: Hospital Disposition Of: Observation - POA Present On Arrival: None
[2017-12-28 21:00] LABS: BASO % 0.5 % (0.0-2.0); EOS # 0.1 K/uL (0.0-0.7); HEMOGLOBIN 12.7 g/dL (12.0-16.0); LYMPH # 1.2 K/uL (1.0-4.3); LYMPH % 19.2 % (20.0-40.0); MEAN CELL VOLUME 97.4 fl (81.0-99.0); MEAN CORPUSCULAR HEMOGLOBIN 32.8 pg (27.0-31.0); MEAN CORPUSCULAR HGB CONC 33.6 g/dL (33.0-37.0); MEAN PLATELET VOLUME 8.5 fl (7.2-11.7); MONO # 0.4 K/uL (0.0-0.8); MONO % 6.7 % (0.0-10.0); NEUT # 4.4 K/uL (1.8-7.0); NEUT % 72.6 % (50.0-75.0); RBC 3.88 Mil/uL (3.80-5.20); RED CELL DISTRIBUTION WIDTH 19.5 % (11.5-14.5); WHITE BLOOD COUNT 6.1 K/uL (4.8-10.8)
[2017-12-28 21:10] LABS: CALCIUM 9.3 mg/dL (8.4-10.2)
[2017-12-29] MEDS ORDERED: Piperacillin/Tazobact 3.375 GM in Sodium Chloride 0.9% 100 ML IVPB STA (00:14)
[2017-12-29 01:30] LABS: SQUAMOUS EPITHIAL 9 /hpf (0-5); URINE AMORPHOUS SEDIMENT RARE /ul (<OCC); URINE BACTERIA RARE (<OCC); URINE BILIRUBIN NEGATIVE (NEGATIVE); URINE BLOOD LARGE (NEGATIVE); URINE CLARITY CLOUDY (Clear); URINE COLOR YELLOW (YELLOW); URINE GLUCOSE (UA) 150 mg/dL (Normal); URINE LEUKOCYTE ESTERASE TRACE Leu/uL (Negative); URINE PROTEIN >=500 mg/dL (NEGATIVE); URINE UROBILINOGEN 0.2-1.0 mg/dL (0.2-1.0)
[2017-12-29] MEDS ORDERED: Piperacillin/Tazobact 3.375 gm Inj IVPB ONE (02:05)
--- NOTE | 2017-12-29 02:49 | CP.PCM.HP ---
History of Present Illness - History of Present Illness History of Present Illness: CC: abd pain HPI: This is a 37 y/o female with HTN and ESRD on M/W/F HD who comes in with RLQ abd pain. She states pain started yesterday and has been persistent. She denies f/c/n/v/d. Has tried Tylenol and Motrin with no relief. Has never had pain like this before. ROS: 14 systems reviewed, negative other than HPI MHx: ESRD on HD, HTN SHx: LUE fistula, C section Allergies: Vancomycin Medications: Pending Family Hx: Reviewed, no relevant findings Social Hx: Lives with family, no tobacco, no EtOH Present on Admission - Present on Admission Any Indicators Present on Admission: No Past Patient History - Infectious Disease Hx of Infectious Diseases: None - Tetanus Immunizations Tetanus Immunization: Unknown - Past Medical History & Family History Past Medical History?: Yes - Past Social History Smoking Status: Never Smoked - CARDIAC Hx Hypertension: Yes - PULMONARY Hx Respiratory Disorders: No - NEUROLOGICAL Hx Neurological Disorder: No - HEENT Hx HEENT Problems: No - RENAL Hx Chronic Kidney Disease: Yes - ENDOCRINE/METABOLIC Hx Endocrine Disorders: No - HEMATOLOGICAL/ONCOLOGICAL Hx Blood Disorders: No - INTEGUMENTARY Hx Dermatological Problems: No - MUSCULOSKELETAL/RHEUMATOLOGICAL Hx Musculoskeletal Disorders: No - GASTROINTESTINAL Hx Gastrointestinal Disorders: No - GENITOURINARY/GYNECOLOGICAL Hx Genitourinary Disorders: No - PSYCHIATRIC Hx Psychophysiologic Disorder: No Hx Substance Use: No - SURGICAL HISTORY Hx Surgeries: Yes Hx Section: Yes (x2) Hx Vascular Surgery: Yes (Left arm A-V fistula) - ANESTHESIA Hx Anesthesia: Yes Hx Anesthesia Reactions: No Hx Malignant Hyperthermia: No Meds Allergies/Adverse Reactions: Allergies Allergy/AdvReac Type Severity Reaction Status Date / Time vancomycin Allergy ITCHING Verified 12/28/17 17:55 Physical Exam - Constitutional Appears: No Acute Distress - Head Exam Head Exam: ATRAUMATIC, NORMOCEPHALIC - Eye Exam Eye Exam: EOMI, PERRL - ENT Exam ENT Exam: Mucous Membranes Moist - Neck Exam Neck exam: Positive for: Full Rom - Respiratory Exam Respiratory Exam: Clear to Auscultation Bilateral, NORMAL BREATHING PATTERN - Cardiovascular Exam Cardiovascular Exam: REGULAR RHYTHM, +S1, +S2 - GI/Abdominal Exam GI & Abdominal Exam: Normal Bowel Sounds, Soft - Extremities Exam Extremities exam: Positive for: full ROM, normal inspection - Neurological Exam Neurological exam: Alert, CN II-XII Intact, Oriented x3 - Psychiatric Exam Psychiatric exam: Normal Affect, Normal Mood - Skin Skin Exam: Dry, Warm Results - Vital Signs Recent Vital Signs: Last Vital Signs Temp 98.3 F 12/29/17 02:15 Pulse 64 12/29/17 02:15 Resp 15 12/29/17 02:15 BP 134/76 12/29/17 02:15 Pulse Ox 100 12/29/17 02:15 - Labs Result Diagrams: 12/28/17 20:54 12/28/17 20:54 Labs: Laboratory Results - last 24 hr 12/28/17 12/28/17 12/28/17 20:35 20:54 20:54 WBC 6.1 RBC 3.88 Hgb 12.7 D Hct 37.8 MCV 97.4 MCH 32.8 H MCHC 33.6 RDW 19.5 H Plt Count 131 MPV 8.5 Neut % (Auto) 72.6 Lymph % (Auto) 19.2 L [place] % (Auto) 6.7 Eos % (Auto) 1.0 Baso % (Auto) 0.5 Neut # (Auto) 4.4 Lymph # (Auto) 1.2 [place] # (Auto) 0.4 Eos # (Auto) 0.1 Baso # (Auto) 0.0 Sodium 141 Potassium 4.7 Chloride 92 L Carbon Dioxide 34 H Anion Gap 20 BUN 44 H Creatinine 7.1 H Est GFR ( Amer) 8 Est GFR (Non-Af Amer) 6 Random Glucose 96 Calcium 9.3 Urine Color Yellow Urine Clarity Cloudy Urine pH 8.0 Ur Specific [place] 1.012 Urine Protein >=500 Urine Glucose (UA) 150 Urine Ketones Negative Urine Blood Large Urine Nitrate Negative Urine Bilirubin Negative Urine Urobilinogen 0.2-1.0 Ur Leukocyte Esterase Trace Urine RBC (Auto) 5 H Urine Microscopic WBC 24 H Ur Squamous Epith Cells 9 H Amorphous Sediment Rare H Urine Bacteria Rare - Imaging and Cardiology CT scan - abdomen Status: Image reviewed by me, Report reviewed by me (1. The appendix is borderline dilated but is stable in caliber compared to the prior study and otherwise) Assessment & Plan (1) Appendicitis Assessment and Plan: 37 y/o female with ESRD on HD p/w questionable appendicitis. -NPO -Surgical consult in AM (Orozco) -Pain control per scale -Zofran IV for nausea -Continue Zosyn 3.375 q6h for now, started in ER -Patient just had HD on Sunday, does not need another session immediately; if patient stays > [address] Combs -SCDs only for DVT PPx Status: Acute (2) ESRD (end stage renal disease) on dialysis Status: Chronic Priority: Low (3) Hypertension Status: Chronic Priority: Low (4) DVT prophylaxis Status: Acute
[2017-12-29] MEDS: Piperacillin/Tazobact 3.375 GM in Sodium Chloride 0.9% 100 ML IVPB SCH ×4 (04:47→21:50)
--- NOTE | 2017-12-29 05:40 | CP.PCM.CON ---
History of Present Illness - History of Present Illness History of Present Illness: Surgery 37 F w PMH of ESRD on HD came with R side abd and R flank pain. Pain started yesterday. Pain radiates to her R back. Sharp. Denies fever, nausea, vomiting, diarrhea, dysuria, hematuria, hematemesis, hematochezia, vaginal bleeding, CP , SOB, recent travels, sick contact. Pt able to urinate. CT shows mildly dilated appendix and cant rule out appendicitis. Surgery is consulted to r/o appendicitis MHx: ESRD on HD, HTN SHx: LUE fistula, C section Allergies: Vancomycin Social Hx: Lives with family, no tobacco, no EtOH Review of Systems - Review of Systems Review of Systems: See HPI Past Patient History - Infectious Disease Hx of Infectious Diseases: None - Tetanus Immunizations Tetanus Immunization: Unknown - Past Medical History & Family History Past Medical History?: Yes - Past Social History Smoking Status: Never Smoked - CARDIAC Hx Cardiac Disorders: Yes - PULMONARY Hx Respiratory Disorders: No - NEUROLOGICAL Hx Neurological Disorder: No - HEENT Hx HEENT Problems: No - RENAL Hx Chronic Kidney Disease: Yes - ENDOCRINE/METABOLIC Hx Endocrine Disorders: No - HEMATOLOGICAL/ONCOLOGICAL Hx Blood Disorders: No - INTEGUMENTARY Hx Dermatological Problems: No - MUSCULOSKELETAL/RHEUMATOLOGICAL Hx Musculoskeletal Disorders: No - GASTROINTESTINAL Hx Gastrointestinal Disorders: No - GENITOURINARY/GYNECOLOGICAL Hx Genitourinary Disorders: No - PSYCHIATRIC Hx Psychophysiologic Disorder: No - SURGICAL HISTORY Hx Surgeries: Yes Hx Section: Yes (x2) Hx Vascular Surgery: Yes (Left arm A-V fistula) - ANESTHESIA Hx Anesthesia: Yes Hx Anesthesia Reactions: No Hx Malignant Hyperthermia: No Meds Allergies/Adverse Reactions: Allergies Allergy/AdvReac Type Severity Reaction Status Date / Time vancomycin Allergy ITCHING Verified 12/28/17 17:55 - Medications Medications: Current Medications Piperacillin Sod/Tazobactam (Sod 3.375 gm/ Sodium Chloride) 100 mls @ 100 mls/ hr IVPB Q6 LORENA PRN Reason: Protocol Last Admin: 12/29/17 04:47 Dose: 100 mls/hr Morphine Sulfate (Morphine) 1 mg IVP Q4 PRN PRN Reason: Pain, Mild (1-3) Morphine Sulfate (Morphine) 2 mg IVP Q4 PRN PRN Reason: Pain, moderate (4-7) Ondansetron HCl (Zofran Inj) 4 mg IVP Q6 PRN PRN Reason: Nausea/Vomiting Physical Exam - Constitutional Appears: No Acute Distress - Head Exam Head Exam: ATRAUMATIC, NORMAL INSPECTION, NORMOCEPHALIC - Eye Exam Eye Exam: EOMI, Normal appearance, PERRL Pupil Exam: NORMAL ACCOMODATION, PERRL - ENT Exam ENT Exam: Mucous Membranes Moist, Normal Exam - Neck Exam Neck exam: Positive for: Normal Inspection - Respiratory Exam Respiratory Exam: NORMAL BREATHING PATTERN - Cardiovascular Exam Cardiovascular Exam: REGULAR RHYTHM - GI/Abdominal Exam GI & Abdominal Exam: Soft, Tenderness. absent: Distended, Firm, Guarding, Hernia, Organomegaly, Pulsatile Mass, Rebound, Rigid - Exam Exam: NORMAL INSPECTION - Extremities Exam Extremities exam: Positive for: full ROM Additional comments: L arm AVF. [email or web address] + - Back Exam Back exam: CVA tenderness (R), NORMAL INSPECTION, tenderness - Neurological Exam Neurological exam: Alert, CN II-XII Intact, Normal Gait, Oriented x3, Reflexes Normal - Psychiatric Exam Psychiatric exam: Normal Affect, Normal Mood - Skin Skin Exam: Dry, Intact, Normal Color, Warm Results - Vital Signs Recent Vital Signs: Last Vital Signs Temp 97.8 F 12/29/17 05:26 Pulse 71 12/29/17 05:26 Resp 18 12/29/17 05:26 BP 146/70 12/29/17 05:26 Pulse Ox 100 12/29/17 03:06 - Labs Result Diagrams: 12/28/17 20:54 12/28/17 20:54 Labs: Laboratory Results - last 24 hr 12/28/17 12/28/17 12/28/17 20:35 20:54 20:54 WBC 6.1 RBC 3.88 Hgb 12.7 D Hct 37.8 MCV 97.4 MCH 32.8 H MCHC 33.6 RDW 19.5 H Plt Count 131 MPV 8.5 Neut % (Auto) 72.6 Lymph % (Auto) 19.2 L [place] % (Auto) 6.7 Eos % (Auto) 1.0 Baso % (Auto) 0.5 Neut # (Auto) 4.4 Lymph # (Auto) 1.2 [place] # (Auto) 0.4 Eos # (Auto) 0.1 Baso # (Auto) 0.0 Sodium 141 Potassium 4.7 Chloride 92 L Carbon Dioxide 34 H Anion Gap 20 BUN 44 H Creatinine 7.1 H Est GFR ( Amer) 8 Est GFR (Non-Af Amer) 6 Random Glucose 96 Calcium 9.3 Urine Color Yellow Urine Clarity Cloudy Urine pH 8.0 Ur Specific [place] 1.012 Urine Protein >=500 Urine Glucose (UA) 150 Urine Ketones Negative Urine Blood Large Urine Nitrate Negative Urine Bilirubin Negative Urine Urobilinogen 0.2-1.0 Ur Leukocyte Esterase Trace Urine RBC (Auto) 5 H Urine Microscopic WBC 24 H Ur Squamous Epith Cells 9 H Amorphous Sediment Rare H Urine Bacteria Rare Assessment & Plan - Assessment and Plan (Free Text) Assessment: R abd pain radiating to R flank: possibly 2/2 kidney stone Appendicitis unlikely : No fever, no vomiting, no diarrhea, no Leukocytosis , appendix is patent: There is air in the appendix. No fat stranding in CT. No appendicolith. CT reads: mildly dilated appendix consistent with last CT. no fat standing. calcification notes on uterovesicular junction UA: WBC and RBC -We will re-evaluate for pain -Serial abd exam -Advance diet as tolerated if pain improves -No emergent surgery at this time. Will NIVIA Orozco
[2017-12-29 08:05] LABS: HEMOGLOBIN 11.7 g/dL (12.0-16.0); MEAN CELL VOLUME 97.9 fl (81.0-99.0); MEAN CORPUSCULAR HGB CONC 33.7 g/dL (33.0-37.0); RBC 3.55 Mil/uL (3.80-5.20); WHITE BLOOD COUNT 5.5 K/uL (4.8-10.8)
[2017-12-29 09:40] LABS: CALCIUM 9.2 mg/dL (8.4-10.2)
--- NOTE | 2017-12-29 09:46 | CT ---
PROCEDURE: CT Abdomen and Pelvis without intravenous contrast HISTORY: flank abd pain COMPARISON: CT scan of the abdomen pelvis dated 04/29/2017. TECHNIQUE: Contiguous images were obtained from the domes of the diaphragms to the upper thighs without the administration of intravenous contrast. Oral contrast was not administered. Radiation dose: Total exam DLP = 764.8 mGy-cm. This CT exam was performed using one or more of the following dose reduction techniques: Automated exposure control, adjustment of the mA and/or kV according to patient size, and/or use of iterative reconstruction technique. FINDINGS: LOWER THORAX: Cardiomegaly. Coronary arterial and valvular calcifications. No focal consolidation or pleural effusion Ble. LIVER: Unremarkable. No gross lesion or ductal dilatation. GALLBLADDER AND BILE DUCTS: Unremarkable. PANCREAS: Unremarkable. No gross lesion or ductal dilatation. SPLEEN: Stable splenomegaly. ADRENALS: Unremarkable. No mass. KIDNEYS AND URETERS: Bilateral atrophic kidneys. Small upper pole cyst. No hydronephrosis. No solid mass. VASCULATURE: Unremarkable. No aortic aneurysm. BOWEL: Unremarkable. No obstruction. No gross mural thickening. APPENDIX: Unremarkable. Normal appendix. PERITONEUM: Unremarkable. No free fluid. No free air. LYMPH NODES: Unremarkable. No enlarged lymph nodes. BLADDER: Unremarkable. REPRODUCTIVE: Unremarkable. BONES: No acute fracture. OTHER FINDINGS: None. IMPRESSION: No urolithiasis or evidence of recently passed genitourinary calculus. Stable atrophy of the kidneys. Additional stable findings as above.
--- NOTE | 2017-12-29 12:27 | US ---
HISTORY: pelvic pain COMPARISON: None available. TECHNIQUE: Grayscale, color Doppler and spectral evaluation the pelvis performed transabdominally and transvaginally. FINDINGS: UTERUS: Measures 8.0 x 4.0 x 5.0 cm. Anteverted. Normal in size and appearance. Posterior sub serosal fibroid measuring 2.0 x 2.0 x 2.0 cm. ENDOMETRIUM: Measures 8 mm in diameter. Unremarkable. CERVIX: No cervical abnormality identified. RIGHT OVARY: Measures 3.0 x 1.7 x 3.0 cm. Multiple follicles. Normal flow. LEFT OVARY: Measures 2.6 x 2.0 x 2.0 cm. Multiple follicles, some of which have thin avascular septation. Normal flow. FREE FLUID: No significant free fluid noted. OTHER FINDINGS: None. IMPRESSION: Posterior sub serosal fibroid measuring up to 2.0 cm. Otherwise, unremarkable pelvic ultrasound.
[2017-12-30 00:38] VITALS: RESP 20; O2SAT 100
[2017-12-30] MEDS: Piperacillin/Tazobact 3.375 GM in Sodium Chloride 0.9% 100 ML IVPB SCH ×2 (04:15→09:19)
--- NOTE | 2017-12-30 07:12 | CP.PCM.PN ---
Subjective - Date & Time of Evaluation Date of Evaluation: 12/30/17 Time of Evaluation: 07:10 - Subjective Subjective: General Surgery - Dr. Orozco PT S&E. NEREIDA. Pt states that her abdominal pain is better. She tolerated diet yesterday with no issues. No Nausea/vomiting,Fevers/Chills/SOB/Chest pain. Objective - Vital Signs/Intake and Output Vital Signs (last 24 hours): Temp Pulse Resp BP Pulse Ox 97.9 F 81 20 110/71 100 12/30/17 00:37 12/30/17 00:37 12/30/17 00:37 12/30/17 00:37 12/30/17 00:37 - Medications Medications: Current Medications Cinacalcet (Sensipar) 30 mg PO DAILY [facility] Piperacillin Sod/Tazobactam (Sod 3.375 gm/ Sodium Chloride) 100 mls @ 100 mls/ hr IVPB Q6 [place] PRN Reason: Protocol Last Admin: 12/30/17 04:15 Dose: 100 mls/hr Morphine Sulfate (Morphine) 1 mg IVP Q4 PRN PRN Reason: Pain, Mild (1-3) Morphine Sulfate (Morphine) 2 mg IVP Q4 PRN PRN Reason: Pain, moderate (4-7) Ondansetron HCl (Zofran Inj) 4 mg IVP Q6 PRN PRN Reason: Nausea/Vomiting Sevelamer Carbonate (Renvela) 0.8 gm PO TID [facility] - Labs Labs: 12/29/17 06:40 12/29/17 06:40 - Constitutional Appears: No Acute Distress - Head Exam Head Exam: ATRAUMATIC, NORMAL INSPECTION, NORMOCEPHALIC - Respiratory Exam Respiratory Exam: NORMAL BREATHING PATTERN. absent: Respiratory Distress - Cardiovascular Exam Cardiovascular Exam: REGULAR RHYTHM - GI/Abdominal Exam GI & Abdominal Exam: Soft. absent: Distended, Firm, Guarding, Rigid, Tenderness , Rebound - Neurological Exam Neurological Exam: Alert, Oriented x3 - Psychiatric Exam Psychiatric exam: Normal Affect, Normal Mood - Skin Skin Exam: Dry, Intact Assessment and Plan - Assessment and Plan (Free Text) Assessment: 37F admitted w/ lower abdominal pain, resolved -Patient symptoms improved and tolerating regular diet -No evidence of appendicitis -Pain could have been related to fibroid v. constipation -Recc. F/U with her PHYSICIAN NEONATOLOGY as outpatient -Clear for D/C from surgical standpoint DW Dr. Ernesto Call PGY4
[2017-12-30 08:16] VITALS: BP 127/84; PULSE 76; TEMP 97.2
[2017-12-30] MEDS: Sevelamer Carb 0.8 gm/Packet PO SCH ×2 (08:17→12:41)
--- NOTE | 2017-12-30 14:38 | CP.PCM.DIS ---
Provider - Provider Date of Admission: 12/29/17 01:09 Attending physician: Sanaz Lin MD Time Spent in preparation of Discharge (in minutes): 35 Diagnosis - Discharge Diagnosis (1) Pain, abdominal, nonspecific Status: Acute Hospital Course - Lab Results Lab Results: Most Recent Lab Values WBC 5.5 K/uL (4.8-10.8) 12/29/17 06:40 RBC 3.55 Mil/uL (3.80-5.20) L 12/29/17 06:40 Hgb 11.7 g/dL (12.0-16.0) L 12/29/17 06:40 Hct 34.8 % (34.0-47.0) 12/29/17 06:40 MCV 97.9 fl (81.0-99.0) 12/29/17 06:40 MCH 33.0 pg (27.0-31.0) H 12/29/17 06:40 MCHC 33.7 g/dL (33.0-37.0) 12/29/17 06:40 RDW 19.0 % (11.5-14.5) H 12/29/17 06:40 Plt Count 115 K/uL (130-400) L 12/29/17 06:40 MPV 8.5 fl (7.2-11.7) 12/28/17 20:54 Neut % (Auto) 72.6 % (50.0-75.0) 12/28/17 20:54 Lymph % (Auto) 19.2 % (20.0-40.0) L 12/28/17 20:54 [place] % (Auto) 6.7 % (0.0-10.0) 12/28/17 20:54 Eos % (Auto) 1.0 % (0.0-4.0) 12/28/17 20:54 Baso % (Auto) 0.5 % (0.0-2.0) 12/28/17 20:54 Neut # (Auto) 4.4 K/uL (1.8-7.0) 12/28/17 20:54 Lymph # (Auto) 1.2 K/uL (1.0-4.3) 12/28/17 20:54 [place] # (Auto) 0.4 K/uL (0.0-0.8) 12/28/17 20:54 Eos # (Auto) 0.1 K/uL (0.0-0.7) 12/28/17 20:54 Baso # (Auto) 0.0 K/uL (0.0-0.2) 12/28/17 20:54 Sodium 142 mmol/l (132-148) 12/29/17 06:40 Potassium 4.8 MMOL/L (3.6-5.0) 12/29/17 06:40 Chloride 94 mmol/L (98-107) L 12/29/17 06:40 Carbon Dioxide 31 mmol/L (22-30) H 12/29/17 06:40 Anion Gap 22 (10-20) H 12/29/17 06:40 BUN 47 mg/dl (7-17) H 12/29/17 06:40 Creatinine 8.2 mg/dl (0.7-1.2) H* 12/29/17 06:40 Est GFR ( Amer) 7 12/29/17 06:40 Est GFR (Non-Af Amer) 5 12/29/17 06:40 Random Glucose 69 mg/dL (65-105) 12/29/17 06:40 Calcium 9.2 mg/dL (8.4-10.2) 12/29/17 06:40 Urine Color Yellow (YELLOW) 12/28/17 20:35 Urine Clarity Cloudy (Clear) 12/28/17 20:35 Urine pH 8.0 (5.0-8.0) 12/28/17 20:35 Ur Specific [place] 1.012 (1.003-1.030) 12/28/17 20:35 Urine Protein >=500 mg/dL (NEGATIVE) 12/28/17 20:35 Urine Glucose (UA) 150 mg/dL (Normal) 12/28/17 20:35 Urine Ketones Negative mg/dL (NEGATIVE) 12/28/17 20:35 Urine Blood Large (NEGATIVE) 12/28/17 20:35 Urine Nitrate Negative (NEGATIVE) 12/28/17 20:35 Urine Bilirubin Negative (NEGATIVE) 12/28/17 20:35 Urine Urobilinogen 0.2-1.0 mg/dL (0.2-1.0) 12/28/17 20:35 Ur Leukocyte Esterase Trace [place]él[place]/uL (Negative) 12/28/17 20:35 Urine RBC (Auto) 5 /hpf (0-3) H 12/28/17 20:35 Urine Microscopic WBC 24 /hpf (0-5) H 12/28/17 20:35 Ur Squamous Epith Cells 9 /hpf (0-5) H 12/28/17 20:35 Amorphous Sediment Rare /ul (<OCC) H 12/28/17 20:35 Urine Bacteria Rare (<OCC) 12/28/17 20:35 - Hospital Course Hospital Course: Karen Milner is a 37 y/o female with Hx of HTN and ESRD on hemodialysis on // who presented yesterday to ED with C/o RLQ and R flank abdominal pain x1 day with radiation to her right leg, with no relief with change of positions or taking tylenol or motrin, persistent for several hours before she decided to come to the ED, at time of admission she denied N/V/D, fever, chills, dysuria or hematuria. The patient was admitted to r/o possible appendicitis, a CT scan was done reported an unremarkable normal appendix, no reports of kidney stone/ hydronephrosis, pelvic transvanginal US done showed a subserosal fibroid in the uterus of 2x2x2 cm and bilateral ovaries with multiple follicles. the patient was consulted by surgery and cleared from surgical standpoint at this time. the patient today feels well and c/o only mild pain to the RLQ only with deep palpation, she tolerates eating food, is ambulatory, denies N/V/D, fever, chills , dysuria, hematuria or vaginal bleeding. Decision is made to D/C patient home with f/u at the clinic, instructions given to return to the hospital if pain returns. Discharge Exam - Head Exam Head Exam: ATRAUMATIC, NORMAL INSPECTION, NORMOCEPHALIC - Eye Exam Eye Exam: EOMI, PERRL - ENT Exam ENT Exam: Mucous Membranes Moist - Respiratory Exam Respiratory Exam: Clear to PA & Lateral. absent: Rales, Rhonchi, Wheezes - Cardiovascular Exam Cardiovascular Exam: REGULAR RHYTHM, +S1, +S2 - GI/Abdominal Exam GI & Abdominal Exam: Normal Bowel Sounds, Tenderness (mild tenderness to deep palpation of RLQ). absent: Organomegaly - Back Exam Back exam: absent: CVA tenderness (L), CVA tenderness (R) - Neurological Exam Neurological exam: Alert, CN II-XII Intact, Normal Gait, Oriented x3 - Psychiatric Exam Psychiatric exam: Normal Affect, Normal Mood - Skin Skin Exam: Normal Color, Warm Discharge Plan - Follow Up Plan Condition: STABLE Disposition: HOME/ ROUTINE Instructions: Acute Abdominal Pain (DC), Acute Abdominal Pain (GEN)
--- NOTE | 2017-12-31 11:01 | PN ---
DATE: 12/30/2017 The patient is seen on the floor. Her pain is markedly better. Abdomen is soft and nontender. She is on her diet. White count is normal at 5. Her creatinine is elevated. Impression is that she is resolved. The CAT scan is unremarkable. The appendix is unchanged. Pelvic ultrasound shows a fibroid pathology. My feeling would be to discharge the patient having worked up the renal issues as necessary. Tolu Orozco MD
== END 2017-12-30 14:44 | disposition home or self-care (01) ==
LOC: H.ER 17:12 → H.ERHOLD 12-29 01:09 → H.MEDSURG1 12-29 02:33
PROVIDERS: ADMIT Family Medicine Geriatric Medicine; ATTEND Family Medicine Geriatric Medicine
DX: R10.31 Right lower quadrant pain (principal); N18.6 End stage renal disease; I12.0 Hypertensive chronic kidney disease with stage 5 chronic kidney disease or end stage renal disease; Z99.2 Dependence on renal dialysis; Z88.1 Allergy status to other antibiotic agents
CPT/HCPCS: 36415; 74176; 76830; 76856; 80048; 81003; 81025; 85025; 85027; 96374; 99282; G0378; J2270; J2543; J7030

== ENCOUNTER 2018-07-07 16:36 | Emergency (ER) | payer OTHER, SELFPAY ==
[2018-07-07 16:37] VITALS: BMI 33.5
[2018-07-07 16:57] VITALS: RESP 18; TEMP 98.7; O2SAT 99
[2018-07-07] MEDS ORDERED: Sodium Chloride 0.9% 500 ML IV STA (17:17)
[2018-07-07 17:44] LABS: BASO % 0.7 % (0.0-2.0); EOS # 0.1 K/uL (0.0-0.7); EOS % 1.1 % (0.0-4.0); HEMOGLOBIN 10.1 g/dL (12.0-16.0); LYMPH # 0.3 K/uL (1.0-4.3); MEAN CELL VOLUME 98.3 fl (81.0-99.0); MEAN CORPUSCULAR HEMOGLOBIN 32.7 pg (27.0-31.0); MEAN CORPUSCULAR HGB CONC 33.3 g/dL (33.0-37.0); MEAN PLATELET VOLUME 8.5 fl (7.2-11.7); MONO # 0.3 K/uL (0.0-0.8); MONO % 6.3 % (0.0-10.0); NEUT % 84.9 % (50.0-75.0); PLATELET COUNT 119 K/uL (130-400); RED CELL DISTRIBUTION WIDTH 15.7 % (11.5-14.5); WHITE BLOOD COUNT 4.8 K/uL (4.8-10.8)
--- NOTE | 2018-07-07 17:48 | ED PDOC ---
HPI:Nausea, Vomiting, Diarrhea Time Seen by Provider: 07/07/18 17:08 Chief Complaint (Nursing): GI Problem Chief Complaint (Provider): GI Problem History Per: Patient, Family (son) History/Exam Limitations: no limitations Onset/Duration Of Symptoms: Days (x 1) Current Symptoms Are (Timing): Still Present Quality Of Discomfort: Cramping, "Pain" Associated Symptoms: Vomiting, Diarrhea, Back Pain Additional Complaint(s): 37 year old female with a history of HTN and renal disease presents to the ED with vomiting and diarrhea since 1 am this morning associated with cramping abdominal pain and back pain. She is on dialysis MWF. Patient is only able to urinate small amounts. Denies hematemesis, different food, sick contacts, chest pain and other medical complaints. PMD: Dr. Keiko Feliciano Claims Sorter: Dr. Cates Past Medical History Reviewed: Historical Data, Nursing Documentation, Vital Signs Vital Signs: Last Vital Signs Temp 98.7 F 07/07/18 16:52 Pulse 90 07/07/18 16:52 Resp 18 07/07/18 16:52 BP 129/80 07/07/18 16:52 Pulse Ox 99 07/07/18 16:52 - Medical History PMH: HTN, Kidney Stones, End Stage Renal Disease (on dialysis), Chronic Kidney Disease - Surgical History Surgical History: (x2) - Family History Family History: States: Unknown Family Hx - Immunization History Hx Tetanus Toxoid Vaccination: No Hx Influenza Vaccination: Yes (2014) Hx Pneumococcal Vaccination: Yes (2014) - Home Medications Home Medications: Ambulatory Orders Medication Instructions Recorded Sevelamer Carbonate [Renvela] 800 mg PO TID 01/13/17 Cinacalcet [Sensipar] 30 mg PO DAILY 12/29/17 Ondansetron [Zofran] 4 mg PO Q8H PRN #6 tab 07/07/18 - Allergies Allergies/Adverse Reactions: Allergies Allergy/AdvReac Type Severity Reaction Status Date / Time vancomycin Allergy ITCHING Verified 12/28/17 17:55 Review of Systems ROS Statement: Except As Marked, All Systems Reviewed And Found Negative Respiratory: Negative for: Shortness of Breath Gastrointestinal: Positive for: Vomiting, Abdominal Pain (cramping), Diarrhea. Negative for: Hematemesis Genitourinary Female: Positive for: Other (only able to urinate small amounts). Negative for: Dysuria, Frequency, Incontinence, Hematuria Musculoskeletal: Positive for: Back Pain Physical Exam - Reviewed Nursing Documentation Reviewed: Yes Vital Signs Reviewed: Yes - Physical Exam Appears: Positive for: Non-toxic, No Acute Distress Head Exam: Positive for: ATRAUMATIC, NORMAL INSPECTION, NORMOCEPHALIC Skin: Positive for: Normal Color, Warm, Dry Eye Exam: Positive for: EOMI, Normal appearance, PERRL Neck: Positive for: Normal, Painless ROM, Supple Cardiovascular/Chest: Positive for: Regular Rate, Rhythm. Negative for: Murmur Respiratory: Positive for: Normal Breath Sounds. Negative for: Respiratory Distress Gastrointestinal/Abdominal: Positive for: Tenderness (mild diffuse tenderness). Negative for: Mass, Distended, Guarding Back: Positive for: Normal Inspection. Negative for: L CVA Tenderness Extremity: Positive for: Normal ROM (upper and lower extremities). Negative for: Tenderness, Deformity, Swelling Neurologic/Psych: Positive for: Alert, Oriented (x 3). Negative for: Motor/Sensory Deficits - Laboratory Results Result Diagrams: 07/07/18 17:32 07/07/18 17:32 Lab Results: chloride 86 - ECG O2 Sat by Pulse Oximetry: 99 (RA) Pulse Ox Interpretation: Normal - Progress ED Course And Treament: 194: Stable. Feels better. Tolerated PO. Fu with pcp. Get dialysis as scheduled for tomorrow. Medical Decision Making Medical Decision Makin:17 Impression: VD and abdominal pain --CMP --CBC --Bentyl 10 mg PO --Zofran 4 mg IV --NS IV Scribe Attestation: Documented by Anya Martinez acting as a scribe for Pa Tello MD Provider Scribe Attestation: All medical record entries made by the Scribe were at my direction and personally dictated by me. I have reviewed the chart and agree that the record accurately reflects my personal performance of the history, physical exam, medical decision making, and the department course for this patient. I have also personally directed, reviewed, and agree with the discharge instructions and disposition. Disposition - Clinical Impression Clinical Impression: Nausea vomiting and diarrhea - Patient ED Disposition Is Patient to be Admitted: No Counseled Patient/Family Regarding: Studies Performed, Diagnosis, Need For Followup, Rx Given - Disposition [facility]errals: [facility] - 07/08/18 Disposition: Routine/Home Disposition Time: 19:47 Condition: STABLE Additional Instructions: Return if not better in 3 days. Prescriptions: Ondansetron [Zofran] 4 mg PO Q8H PRN #6 tab PRN Reason: Nausea/Vomiting Instructions: Diarrhea in Adolescents and Adults, Nausea and Vomiting, Adult (DC)
[2018-07-07 18:03] LABS: ALB/GLOB RATIO 1.3 (1.0-2.1); CALCIUM 9.6 mg/dL (8.4-10.2)
[2018-07-07 18:56] LABS: ANISOCYTOSIS SLIGHT; BANDS 2 % (0-2); EOSINOPHIL 2 % (0-7); LYMPHOCYTE 4 % (20-50); MONOCYTE 7 % (0-10); NEUTROPHIL 85 % (42-75); PLATELET ESTIMATE SLIGHTLY DECREASED (NORMAL); POIKILOCYTOSIS SLIGHT; TOTAL CELLS COUNTED 100
[2018-07-07 19:55] VITALS: BP 134/75; PULSE 82
== END 2018-07-07 20:05 | disposition home or self-care (01) ==
LOC: H.ER 16:36
DX: R11.2 Nausea with vomiting, unspecified (principal); R19.7 Diarrhea, unspecified; N18.6 End stage renal disease; Z99.2 Dependence on renal dialysis; I12.0 Hypertensive chronic kidney disease with stage 5 chronic kidney disease or end stage renal disease
CPT/HCPCS: 80053; 85025; 96360; 99284; J2405; J7040